=== PATIENT | female | born 1970 | race African-American/Black ===

== ENCOUNTER 2024-12-09 00:02 | Emergency (ER) | payer MEDICARE, MEDICAID ==
[~2024-12-09] VITALS: Ht 177.8 cm; Wt 68.0 kg
[2024-12-09 00:03] VITALS: O2SAT 100
[2024-12-09] MEDS: ACETAMINOPHEN 500MG TABLET PO ONE (00:34)
[2024-12-09] MEDS: AMOXICILLIN/POTASSIUM CLAVULANATE 875/125MG TAB PO ONE (00:34)
[2024-12-09] MEDS: LIDOCAINE HCL 1% 20ML VIAL INFIL ONE (00:35)
[2024-12-09] MEDS: TETANUS, DIPHTHERIA, PERTUSSIS VAC/PF 0.5ML (>10YR OLD) IM ONE (00:35)
[2024-12-09] MEDS ORDERED: AMOX1TAB16 MT (00:53)
[2024-12-09] MEDS ORDERED: IBUP-1455 MT (00:53)
[2024-12-09] MEDS ORDERED: BO1 TP (00:53)
[2024-12-09 00:58] VITALS: BP 151/96; PULSE 76; RESP 16; TEMP 36.8; O2SAT 100
== END 2024-12-09 01:56 | disposition home or self-care (01) ==
LOC: ER 00:02
DX: S81.812A Laceration without foreign body, left lower leg, initial encounter (principal); I10 Essential (primary) hypertension; F10.90 Alcohol use, unspecified, uncomplicated; F12.90 Cannabis use, unspecified, uncomplicated; W54.0XXA Bitten by dog, initial encounter; Y93.89 Activity, other specified; Y92.89 Other specified places as the place of occurrence of the external cause; Y99.8 Other external cause status
CPT/HCPCS: 99283; 73590; 90715; 12002; 90471; A6449

== ENCOUNTER 2024-12-18 12:35 | Emergency (ER) | payer MEDICARE, MEDICAID ==
[~2024-12-18] VITALS: Ht 175.3 cm; Wt 70.0 kg
[~2024-12-18 12:35] MED LIST: AMOX1TAB16 MT; BO1 TP; IBUP-1455 MT
[2024-12-18 13:01] VITALS: O2SAT 99
[2024-12-18] MEDS ORDERED: SULF1TAB48 MT (13:54)
[2024-12-18 14:13] VITALS: BP 150/79; PULSE 101; RESP 18; TEMP 36.9; O2SAT 99
== END 2024-12-18 14:15 | disposition home or self-care (01) ==
LOC: ER 12:35
DX: L03.90 Cellulitis, unspecified (principal); I10 Essential (primary) hypertension; Z48.00 Encounter for change or removal of nonsurgical wound dressing; Z98.890 Other specified postprocedural states
CPT/HCPCS: 99281